=== PATIENT | female | born 1995 | race Hispanic/Latino ===

== ENCOUNTER 2020-09-23 17:03 | Emergency (ER) | payer BC ==
[~2020-09-23] VITALS: Ht 157.5 cm; Wt 99.8 kg
[2020-09-23 17:30] VITALS: BP 130/83
[2020-09-23] MEDS ORDERED: ONDANSETRON 4MG INJ IVP ONE (19:00)
[2020-09-23] MEDS ORDERED: 0.9%NACL 1000ML 1,000 ML IV ONE (19:00)
[2020-09-23 19:25] LABS: BASOPHILS % (AUTO) 0.1 % (0.0-5.0); HEMATOCRIT 36.2 % (36-48); LYMPHOCYTES % (AUTO) 2.7 % (21.0-51.0); MEAN CORPUSCULAR HGB CONC 32.3 g/dL (32.0-36.0); MEAN CORPUSCULAR VOLUME 77.4 fL (79-99); MONOCYTES % (AUTO) 1.5 % (3.0-13.0); NEUTROPHILS % (AUTO) 95.3 % (40.0-77.0); PLATELET COUNT (AUTO) 384 K/uL (130-400); RED BLOOD CELL COUNT(AUTO) 4.68 MIL/uL (4.00-5.50); RED CELL DISTRIBUTION WIDTH 15.9 % (11.0-15.5); WHITE BLOOD COUNT (AUTO) 11.3 K/uL (4.8-10.8)
[2020-09-23 19:38] LABS: APPEARANCE,URINE Clear (CLEAR); BILIRUBIN,URINE Negative (NEGATIVE); COLOR,URINE Yellow (YELLOW); GLUCOSE, URINE (UA) Negative (NEGATIVE); KETONES,URINE >=160 mg/dL (NEGATIVE); LEUKOCYTE ESTERASE ,URINE Trace (NEGATIVE); NITRATE,URINE Negative (NEGATIVE); OCCULT BLOOD,URINE Negative (NEGATIVE); PROTEIN,URINE Trace mg/dL (NEGATIVE)
[2020-09-23 19:41] LABS: CARBON DIOXIDE 23 mmol/L (21-32); CHLORIDE 103 mmol/L (101-111); CREATININE 0.7 mg/dL (0.5-1.5); GLOMERULAR FILTR. RATE CALC 109 mL/min (>60); GLUCOSE,RANDOM 117 mg/dL (70-105); POTASSIUM 3.8 mmol/L (3.5-5.1); SODIUM SERUM 139 mmol/L (136-145); UREA NITROGEN, BLOOD 12 mg/dL (7-18)
[2020-09-23 19:46] LABS: ALANINE AMINOTRANSFERASE 102 U/L (12-78); ALBUMIN 3.4 g/dL (3.5-5.0); AMYLASE 35 U/L (25-115); ASPARTATE AMINOTRANSFERASE 55 U/L (10-37); BILIRUBIN,TOTAL 0.3 mg/dL (0.2-1.0); TOTAL PROTEIN, SERUM 7.8 g/dL (6.0-8.3)
[2020-09-23 19:47] LABS: LIPASE < 50 U/L (114-286)
[2020-09-23 19:48] LABS: BACTERIA,URINE Few /HPF (None Seen); MUCUS,URINE Moderate LPF (None Seen); SQUAMOUS EPITHELIAL CELL,UR Few /HPF (0-2)
[2020-09-23 20:50] VITALS: BP 133/61
== END 2020-09-23 20:51 | disposition home or self-care (01) ==
LOC: EDH 17:03
DX: O21.0 Mild hyperemesis gravidarum (principal); O26.891 Other specified pregnancy related conditions, first trimester; R19.7 Diarrhea, unspecified; Z79.899 Other long term (current) drug therapy; Z3A.10 10 weeks gestation of pregnancy
CPT/HCPCS: 36415; 80053; 81001; 82150; 83690; 85025; 96361; 96374; 99284; J2405; J7030

== ENCOUNTER 2021-03-16 13:39 | Observation (INO) | payer BC ==
[~2021-03-16] VITALS: Ht 157.5 cm; Wt 113.4 kg
[2021-03-16 13:40] VITALS: BP 158/101
[2021-03-16 15:10] LABS: APPEARANCE,URINE Clear (CLEAR); BILIRUBIN,URINE Negative (NEGATIVE); COLOR,URINE Yellow (YELLOW); GLUCOSE, URINE (UA) Negative (NEGATIVE); KETONES,URINE Negative (NEGATIVE); LEUKOCYTE ESTERASE ,URINE Trace (NEGATIVE); NITRATE,URINE Negative (NEGATIVE); OCCULT BLOOD,URINE Negative (NEGATIVE); PH,URINE 6.5 (5.0-8.0); PROTEIN,URINE POS 1+ mg/dL (NEGATIVE)
[2021-03-16 16:02] LABS: BASOPHILS % (AUTO) 0.3 % (0.0-5.0); EOSINOPHILS % (AUTO) 1.2 % (0.0-8.0); HEMATOCRIT 33.6 % (36-48); LYMPHOCYTES % (AUTO) 12.9 % (21.0-51.0); MEAN CORPUSCULAR HEMOGLOBIN 27.7 pg (27.0-33.0); MEAN CORPUSCULAR VOLUME 83.8 fL (79-99); NEUTROPHILS % (AUTO) 79.8 % (40.0-77.0); PLATELET COUNT (AUTO) 290 K/uL (130-400); RED BLOOD CELL COUNT(AUTO) 4.01 MIL/uL (4.00-5.50); RED CELL DISTRIBUTION WIDTH 15.3 % (11.0-15.5); WHITE BLOOD COUNT (AUTO) 10.4 K/uL (4.8-10.8)
[2021-03-16 16:13] LABS: CREATININE 0.6 mg/dL (0.5-1.5)
[2021-03-16 16:15] LABS: BACTERIA,URINE Many /HPF (None Seen); RBC,URINE None Seen /HPF (0-1); SQUAMOUS EPITHELIAL CELL,UR 0-2 /HPF (0-2); WBC,URINE 0-1 /HPF (0-1)
[2021-03-16 16:17] LABS: ALBUMIN 2.4 g/dL (3.5-5.0); BILIRUBIN,TOTAL 0.2 mg/dL (0.2-1.0); TOTAL PROTEIN, SERUM 6.5 g/dL (6.0-8.3)
[2021-03-16 16:22] LABS: INR 0.9 (0.85-1.15); PROTHROMBIN TIME 9.9 SEC (9.6-11.6)
[2021-03-16 16:24] LABS: PARTIAL THROMBOPLASTIN TIME 28.5 SEC (26.3-35.5)
== END 2021-03-16 17:29 | disposition home or self-care (01) ==
LOC: EDH 13:39 → LDH 13:47
PROVIDERS: ADMIT Obstetrics & Gynecology; ATTEND Obstetrics & Gynecology
DX: O12.03 Gestational edema, third trimester (principal); Z3A.35 35 weeks gestation of pregnancy; Z79.899 Other long term (current) drug therapy; Z98.890 Other specified postprocedural states
CPT/HCPCS: 36415; 59025; 80053; 81001; 84550; 85025; 85384; 85610; 85730; 87088; G0378 ×3

== ENCOUNTER 2021-03-20 15:43 | Inpatient (IN) | payer BC, MEDICAID ==
[~2021-03-20] VITALS: Ht 157.5 cm; Wt 122.5 kg
[2021-03-20] MEDS ORDERED: LACTATED RINGERS 1000ML 1,000 ML IV PRN (16:30)
[2021-03-20] MEDS ORDERED: OXYTOCIN-LR 20 UNITS/1000 ML 1,000 ML IV SCH (16:30)
[2021-03-20 16:45] LABS: APPEARANCE,URINE Clear (CLEAR); BILIRUBIN,URINE Negative (NEGATIVE); COLOR,URINE Yellow (YELLOW); GLUCOSE, URINE (UA) Negative (NEGATIVE); KETONES,URINE Negative (NEGATIVE); LEUKOCYTE ESTERASE ,URINE Negative (NEGATIVE); NITRATE,URINE Negative (NEGATIVE); OCCULT BLOOD,URINE Negative (NEGATIVE); PROTEIN,URINE POS 1+ mg/dL (NEGATIVE); UROBILINOGEN,URINE 0.2 mg/dL (0.2-1.0)
[2021-03-20 17:15] LABS: BASOPHILS % (AUTO) 0.4 % (0.0-5.0); EOSINOPHILS % (AUTO) 1.3 % (0.0-8.0); LYMPHOCYTES % (AUTO) 12.1 % (21.0-51.0); MEAN CORPUSCULAR HEMOGLOBIN 28.2 pg (27.0-33.0); MEAN CORPUSCULAR HGB CONC 33.6 g/dL (32.0-36.0); MONOCYTES % (AUTO) 4.2 % (3.0-13.0); NEUTROPHILS % (AUTO) 81.2 % (40.0-77.0); PLATELET COUNT (AUTO) 265 K/uL (130-400); RED BLOOD CELL COUNT(AUTO) 3.93 MIL/uL (4.00-5.50); RED CELL DISTRIBUTION WIDTH 15.3 % (11.0-15.5)
[2021-03-20 17:27] LABS: CREATININE 0.5 mg/dL (0.5-1.5)
[2021-03-20 17:28] LABS: INR 0.89 (0.85-1.15); PROTHROMBIN TIME 9.8 SEC (9.6-11.6)
[2021-03-20 17:30] LABS: PARTIAL THROMBOPLASTIN TIME 28.5 SEC (26.3-35.5)
[2021-03-20 17:31] LABS: ALBUMIN 2.4 g/dL (3.5-5.0); BILIRUBIN,TOTAL 0.2 mg/dL (0.2-1.0); TOTAL PROTEIN, SERUM 6.3 g/dL (6.0-8.3); URIC ACID 5.2 mg/dL (2.6-7.2)
[2021-03-20 17:33] LABS: BACTERIA,URINE None Seen /HPF (None Seen); RBC,URINE None Seen /HPF (0-1); SQUAMOUS EPITHELIAL CELL,UR 0-2 /HPF (0-2); WBC,URINE None Seen /HPF (0-1)
[2021-03-20] MEDS ORDERED: CEFAZOLIN SODIUM 1 GM VIAL ONE (17:53)
[2021-03-20] MEDS ORDERED: CALDOLOR 800MG+NS 250ML 250 ML IV PRN (18:00)
[2021-03-20] MEDS ORDERED: CEFAZOLIN SODIUM 1 GM VIAL IVP PRN (18:00)
[2021-03-20] MEDS ORDERED: CEFAZOLIN SODIUM 100 GM IV PRN (18:00)
[2021-03-20] MEDS ORDERED: LACTATED RINGERS 1000ML 1,000 ML IV SCH (18:00)
[2021-03-20] MEDS ORDERED: METOCLOPRAMIDE 10 MG/2 ML VIAL ONE (18:19)
[2021-03-20] MEDS ORDERED: ONDANSETRON 4MG INJ ONE (18:26)
[2021-03-20] MEDS ORDERED: OXYTOCIN 10 USP UNITS/ML ONE ×2 (18:26→19:22)
[2021-03-20] MEDS ORDERED: FENTANYL CITRATE PF 50 MCG/1 ML 2ML VIAL ONE ×2 (18:27→19:38)
[2021-03-20] MEDS ORDERED: MORPHINE PF 100MG/10ML AMP IV ONE (18:27)
[2021-03-20] MEDS ORDERED: CITRIC ACID/SODIUM CITRATE 30 ML UDCUP ONE (18:38)
[2021-03-20] MEDS ORDERED: CEFAZOLIN SODIUM 3 GM VIAL IV ONE (18:50)
[2021-03-20] MEDS ORDERED: 0.9%NACL 10ML VIAL IVP PRN (20:30)
[2021-03-20] MEDS ORDERED: DEXTROSE 5 %-0.45 % NACL 1,000 ML IV PRN (20:30)
[2021-03-20] MEDS ORDERED: MEPERIDINE-PF 75 MG/ML SYG IM PRN (20:30)
[2021-03-20] MEDS ORDERED: PROMETHAZINE HCL 25 MG/ML 1ML AMPULE IM PRN (20:30)
[2021-03-20] MEDS ORDERED: OXYTOCIN-LR 20 UNITS/1000 ML 1,000 ML IV PRN (20:30)
[2021-03-20] MEDS ORDERED: DiphenhydrAMINE HCL 50 MG/ML VIAL IVP PRN (21:00)
[2021-03-20] MEDS ORDERED: NALOXONE HCL 0.4 MG/1 ML ML IVP PRN ×2 (21:00)
[2021-03-20] MEDS ORDERED: ONDANSETRON 4MG INJ IVP PRN (21:00)
[2021-03-20] MEDS ORDERED: LORATADINE 10 MG TABLET PO PRN (21:00)
[2021-03-20] MEDS ORDERED: EPHEDRINE SULFATE 50 MG/ML AMPULE IVP PRN (21:00)
[2021-03-20 22:26] VITALS: BP 121/67
[2021-03-20 23:46] VITALS: BP 121/86
[2021-03-21] MEDS ORDERED: ACETAMINOPHEN WITH CODEINE 1 TAB TAB PO PRN (00:30)
[2021-03-21] MEDS ORDERED: DIPH,PERTUSS(ACELL),TET VAC/PF 0.5 ML VIAL IM ONE (02:30)
[2021-03-21] MEDS: CALDOLOR 800MG+NS 250ML 250 ML IV SCH ×2 (03:10→11:47)
[2021-03-21 04:05] VITALS: BP 119/51
[2021-03-21 07:02] LABS: RAPID PLASMA REAGIN NONREACTIVE (NONREACTIVE)
[2021-03-21 07:03] LABS: HEMATOCRIT 25.2 % (36-48); MEAN CORPUSCULAR HEMOGLOBIN 28.3 pg (27.0-33.0); MEAN CORPUSCULAR HGB CONC 32.1 g/dL (32.0-36.0); MEAN CORPUSCULAR VOLUME 88.1 fL (79-99); RED BLOOD CELL COUNT(AUTO) 2.86 MIL/uL (4.00-5.50); RED CELL DISTRIBUTION WIDTH 15.3 % (11.0-15.5); WHITE BLOOD COUNT (AUTO) 10.8 K/uL (4.8-10.8)
[2021-03-21 07:33] VITALS: BP 112/68
[2021-03-21] MEDS ORDERED: ACETAMINOPHEN 500 MG TABLET PO PRN (09:00)
[2021-03-21] MEDS ORDERED: HYDROCODONE/ACETAMINOPHEN 5/325 MG TAB PO PRN (09:00)
[2021-03-21] MEDS ORDERED: BISACODYL 10 MG SUPP.RECT RC PRN (09:00)
[2021-03-21] MEDS: DOCUSATE SODIUM 100 MG CAP PO SCH ×2 (10:00→19:38)
[2021-03-21] MEDS: SIMETHICONE 80 MG TAB.CHEW PO PRN ×2 (10:00→19:38)
[2021-03-21] MEDS: ACETAMINOPHEN WITH CODEINE 1 TAB TAB PO PRN ×4 (10:10→22:46)
[2021-03-21 11:24] VITALS: BP 123/68
[2021-03-21 16:28] VITALS: BP_SYST 91; BP_SYST 95; BP_DIAS 41; BP_DIAS 45
[2021-03-21 19:28] VITALS: BP 130/71
[2021-03-21] MEDS: IBUPROFEN 600 MG TABLET PO PRN (19:50)
[2021-03-21] MEDS ORDERED: PREN-196 PO (22:49)
[2021-03-21] MEDS ORDERED: METF750T46 PO (22:49)
[2021-03-21] MEDS ORDERED: FOLI0.8T3 PO (22:49)
[2021-03-21] MEDS ORDERED: ASPI-1005 PO (22:49)
[2021-03-21 23:10] VITALS: BP 140/77
[2021-03-22 03:30] VITALS: BP 136/76
[2021-03-22 07:20] VITALS: BP 135/69
[2021-03-22] MEDS: DOCUSATE SODIUM 100 MG CAP PO SCH (08:51)
[2021-03-22] MEDS: SIMETHICONE 80 MG TAB.CHEW PO PRN (08:51)
[2021-03-22] MEDS: IBUPROFEN 600 MG TABLET PO PRN (08:55)
[2021-03-22] MEDS ORDERED: IBUP-2077 PO (10:33)
[2021-03-22] MEDS ORDERED: ACET1TAB25 PO (10:34)
[2021-03-22] MEDS ORDERED: DOCU-116 PO (10:34)
[2021-03-22 11:31] VITALS: BP 130/70
[2021-03-22] MEDS: ACETAMINOPHEN WITH CODEINE 1 TAB TAB PO PRN (11:31)
== END 2021-03-22 14:30 | disposition home or self-care (01) | DRG 787 ==
LOC: EDH 15:43 → LDH 15:44 → OBSVTOIN 15:44 → WSH 22:10
PROVIDERS: ADMIT Obstetrics & Gynecology; ATTEND Obstetrics & Gynecology
PROC: 3E0234Z Introduction of Serum, Toxoid and Vaccine into Muscle, Percutaneous Approach (ICD-10-PCS; 2021-03-20)
PROC: 10D00Z1 Extraction of Products of Conception, Low, Open Approach (ICD-10-PCS; principal; 2021-03-20 18:45)
DX: O30.033 Twin pregnancy, monochorionic/diamniotic, third trimester (principal); D62 Acute posthemorrhagic anemia; O99.214 Obesity complicating childbirth; Z37.2 Twins, both liveborn; O24.425 Gestational diabetes mellitus in childbirth, controlled by oral hypoglycemic drugs; O14.14 Severe pre-eclampsia complicating childbirth; E66.01 Morbid (severe) obesity due to excess calories; O99.284 Endocrine, nutritional and metabolic diseases complicating childbirth; E28.2 Polycystic ovarian syndrome; O32.2XX2 Maternal care for transverse and oblique lie, fetus 2; O99.02 Anemia complicating childbirth; O99.62 Diseases of the digestive system complicating childbirth; K21.9 Gastro-esophageal reflux disease without esophagitis; Z3A.35 35 weeks gestation of pregnancy; Z23 Encounter for immunization
CPT/HCPCS: 36415; 59510; 80053; 81001; 84550; 85025; 85027; 85384; 85610; 85730; 86592; 86701; 86850; 86900; 86901; 87340; 87390; 90715; A4344; G0378; J0690; J1741; J2274; J2405; J2590; J2765; J3010; J7120